=== PATIENT | female | born 1955 | race Two or more races ===

== ENCOUNTER 2019-01-23 22:06 | Emergency (ER) | payer OTHER ==
[2019-01-23 22:14] VITALS: BP 159/93; PULSE 82; TEMP 98.2; BMI 38.7
[2019-01-23] MEDS ORDERED: ACETAMINOPHEN 500 MG TABLET (FP) ONE (22:43)
[2019-01-23] MEDS ORDERED: ACETAMINOPHEN 500 MG TABLET (FP) PO ONE (22:46)
--- NOTE | 2019-01-24 00:52 | PDOC ---
Documentation entered by Ricardo Lo SCRIBE, acting as scribe for Kristy Leos MD. Kristy Leos MD: This documentation has been prepared by the Teresita morgan Elijah, SCRIBE, under my direction and personally reviewed by me in its entirety. I confirm that the documentation accurately reflects all work, treatment, procedures, and medical decision making performed by me. History of Present Illness - General Chief Complaint: Pain, Acute Stated Complaint: CLEANING BATHROOM SLIPPED AND FELL INJURING RIGHT History Source: Patient Exam Limitations: No Limitations - History of Present Illness Initial Comments: 01/23/19 22:09 Patient is 63 year old female with a significant past medical history of non- insulin dependent diabetes, hypertension, and hyperlipidemia who presents to the ED s/p fall x1.5 hours ago. Patient reports that she was filling up soap in the bathtub while cleaning and felt herself begin to slip. Patient notes that she tried to catch herself but loss balance and hit her right ribcage against edge of tub. Patient rated the pain as 8.5/10 and associates some pain with breathing. Denies head/neck trauma. Allergies: Gabapentin Past History - Past Medical History Allergies/Adverse Reactions: Allergies Allergy/AdvReac Type Severity Reaction Status Date / Time gabapentin Allergy Verified 01/23/19 22:08 Home Medications: Ambulatory Orders Lisinopril 40 mg PO DAILY 10/12/15 metFORMIN HCL [Metformin HCl] 500 mg PO DAILY 10/12/15 Aspirin 81 mg PO DAILY 01/23/19 Ibuprofen [Motrin -] 600 mg PO TID PRN #12 tablet 01/23/19 Anemia: No Asthma: No Cancer: No Cardiac Disorders: No CVA: No COPD: No CHF: No Dementia: No Diabetes: Yes GI Disorders: No Disorders: No HTN: Yes Hypercholesterolemia: Yes Liver Disease: No Psychiatric Problems: Yes (ANXIETY, DEPRESSION, INSOMNIA) Seizures: No Thyroid Disease: No - Surgical History Lung Surgery: No - Immunization History Immunization Up to Date: No - Suicide/Smoking/Psychosocial Hx Smoking History: Never smoked Have you smoked in the past 12 months: No Number of Cigarettes Smoked Daily: 0 Hx Alcohol Use: No Drug/Substance Use Hx: No Substance Use Type: None Hx Substance Use Treatment: No Review of Systems - Review of Systems Comments:: 01/23/19 22:10 All systems are reviewed and negative except as noted in the HPI *Physical Exam - Vital Signs Last Vital Signs Temp Pulse Resp BP Pulse Ox 98.2 F 82 18 159/93 100 01/23/19 22:11 01/23/19 22:11 01/23/19 22:11 01/23/19 22:11 01/23/19 22:11 - Physical Exam Comments: 01/23/19 22:10 GENERAL: Awake, alert, and fully oriented, in no acute distress HEAD: No signs of trauma EYES: PERRLA, EOMI, sclera anicteric, conjunctiva clear ENT: Auricles normal inspection, hearing grossly normal, nares patent, oropharynx clear without exudates. Moist mucosa NECK: Normal ROM, supple, no lymphadenopathy, JVD, or masses LUNGS: Breath sounds equal, clear to auscultation bilaterally. No wheezes, and no crackles HEART: Regular rate and rhythm, normal S1 and S2, no murmurs, rubs or gallops CHEST: +Moderate tenderness to palapation in Right Lower Chest wall, Ribs 7-10 in anterior ancillary line. No Palpable step-offs or crepitus. ABDOMEN: Soft, nontender, normoactive bowel sounds. No guarding, no rebound. No masses EXTREMITIES: Normal range of motion, no edema. No clubbing or cyanosis. No cords, erythema, or tenderness NEUROLOGICAL: Cranial nerves II through XII grossly intact. Normal speech SKIN: Warm, Dry, normal turgor, no rashes or lesions noted. ED Treatment Course - RADIOLOGY Radiology Studies Ordered: Category Date Time Status RIBS RIGHT SIDE [RAD] Stat Radiology 01/23/19 22:19 Taken - Medications Given in the ED: ED Medications Discontinued Medications Generic Name Dose Route Start Last Admin Trade Name Freq PRN Reason Stop Dose Admin Acetaminophen 1,000 mg 01/23/19 22:46 01/23/19 22:47 Tylenol - PO 01/23/19 22:47 1,000 mg ONCE ONE Administration Progress Note - Progress Note Progress Note: As noted above, 63-year-old woman with a history of HTN/NIDDM presents with injury to her right lower chest wall. Earlier this evening, while cleaning her bathroom, she slipped and fell forward, striking lower portion of her right ribs against the edge of the bathtub. No other injury sustained. She notes tenderness in a specific area of the right anterior lower rib cage; she has pain in this area with deep breathing. She has no abdominal pain/nausea noted. Exam as noted above. Right rib series x-ray obtained. Preliminary reading by mani QUINTANILLA chest shows no significant acute abnormality. 10th rib appears to be mildly deformed without displacement of edges. No other rib abnormality seen. Results discussed with the patient. She states that she generally uses Tylenol for pain relief. However, her PMD has prescribed ibuprofen in the past for knee pain. She will be given a 1 g of Tylenol now. She should alternate Tylenol with Motrin for pain relief over the next few days and apply cold compresses for the next 24 hours to the area of tenderness. She should take Motrin with food. Small (#20) prescription for Motrin 600 mg twice a day sent to her pharmacy. She should plan to follow-up with her doctor within the next 2-3 days. She should return to the ER immediately if she has shortness of breath/fever/cough or develops any abdominal discomfort/nausea *DC/Admit/Observation/Transfer Diagnosis at time of Disposition: Closed traumatic nondisplaced fracture of rib - Discharge Dispostion Disposition: HOME Condition at time of disposition: Stable - Prescriptions Prescriptions: Ibuprofen [Motrin -] 600 mg PO TID PRN #12 tablet PRN Reason: Pain - Referrals - Patient Instructions Printed Discharge Instructions: Rib Fracture Additional Instructions: Cool compresses to area of pain for the next 24 hours Alternate Tylenol 650 mg with Motrin 600 mg up to twice a day each for pain Always take Motrin with food Follow-up with your doctor within the next 3-4 days Return to ER immediately if you have difficulty breathing/fever/cough/abdominal pain or vomiting - Post Discharge Activity
== END 2019-01-23 22:54 | disposition home or self-care (01) ==
LOC: FER 22:06
DX: S22.31XA Fracture of one rib, right side, initial encounter for closed fracture (principal); W01.0XXA Fall on same level from slipping, tripping and stumbling without subsequent striking against object, initial encounter; Y93.E1 Activity, personal bathing and showering; Y92.002 Bathroom of unspecified non-institutional (private) residence as the place of occurrence of the external cause; I10 Essential (primary) hypertension; E11.9 Type 2 diabetes mellitus without complications
CPT/HCPCS: 71101-TC-RT-FY; 99281-25

== ENCOUNTER 2019-03-26 16:31 | Emergency (ER) | payer OTHER ==
[2019-03-26 16:53] VITALS: BP 145/81; PULSE 80; TEMP 98.1; BMI 38.9
--- NOTE | 2019-03-26 17:38 | PDOC ---
Documentation entered by Johanna Mondragon SCRIBE, acting as scribe for Ino Abdalla MD. Ino Abdalla MD: This documentation has been prepared by the Giancarlo morgan Aiswarya, SCRIBE, under my direction and personally reviewed by me in its entirety. I confirm that the documentation accurately reflects all work, treatment, procedures, and medical decision making performed by me. History of Present Illness - General Chief Complaint: Injury Stated Complaint: LEFT ANKLE PAIN S/P FALL Time Seen by Provider: 03/26/19 16:45 History Source: Patient Exam Limitations: No Limitations - History of Present Illness Initial Comments: 03/26/19 17:12 The patient is a 63 year old female, with a significant PMH of diabetes, HLD and anxiety who presents to the emergency department with left ankle pain that began 1 week ago. The patient states she reached over to grab something when she fell to the left side injuring her left ankle. Patient states she has been walking on the left foot but pain has progressively worsened today. The patient denies any numbness or tingling. Denies any head injury. Denies any pain on flexion and extension. Denies chest pain, shortness of breath, headache and dizziness.Denies fever, chills, and nausea. Allergies: gabapentin Past surgical history: None reported Social history: None reported PCP: None reported Past History - Past Medical History Allergies/Adverse Reactions: Allergies Allergy/AdvReac Type Severity Reaction Status Date / Time gabapentin Allergy Verified 03/26/19 17:03 Home Medications: Ambulatory Orders Lisinopril 40 mg PO DAILY 10/12/15 metFORMIN HCL [Metformin HCl] 500 mg PO BID 10/12/15 Aspirin 81 mg PO DAILY 01/23/19 Anemia: No Asthma: No Cancer: No Cardiac Disorders: No CVA: No COPD: No CHF: No Dementia: No Diabetes: Yes GI Disorders: No Disorders: No HTN: Yes Hypercholesterolemia: Yes Liver Disease: No Psychiatric Problems: Yes (ANXIETY, DEPRESSION, INSOMNIA) Seizures: No Thyroid Disease: No - Surgical History Lung Surgery: No - Immunization History Immunization Up to Date: No - Psycho Social/Smoking Cessation Hx Smoking History: Never smoked Have you smoked in the past 12 months: No Number of Cigarettes Smoked Daily: 0 Hx Alcohol Use: No Drug/Substance Use Hx: No Substance Use Type: None Hx Substance Use Treatment: No Review of Systems - Review of Systems Able to Perform ROS?: Yes Comments:: 03/26/19 17:05 A complete review of 10 out of 10 review of systems is taken and is negative apart from what is previously mentioned below and in the HPI. *Physical Exam - Vital Signs Last Vital Signs Temp Pulse Resp BP Pulse Ox 98.1 F 80 19 145/81 95 03/26/19 16:32 03/26/19 16:32 03/26/19 16:32 03/26/19 16:32 03/26/19 16:32 - Physical Exam Comments: 03/26/19 17:32 Vitals: Triage Vital signs reviewed General Appearance: no acute distress, well nourished well developed, Head: Atraumatic, normocephalic Cardiac: Regular rate and rhythm, no murmurs, no rubs, no gallops, Lungs: Clear to auscultation bilateral, good air movement bilaterally, Extremities: +Tenderness on palpation of the left proximal 5th metatarsal digit. Neurovascular intact. Skin: Warm and dry, no rashes or lesions, no petechiae Neuro: AOX3; Cranial Nerves 2-12 grossly c intact, Strength intact to all extremities, Sensation intact to all extremities, gait normal Psych: normal mood, normal affect ED Treatment Course - RADIOLOGY Radiology Studies Ordered: Category Date Time Status ANKLE & FOOT-LEFT* [RAD] Stat Radiology 03/26/19 16:45 Taken Medical Decision Making - Medical Decision Making 03/26/19 17:33 Patient twisted her ankle approximately 1 week ago has been ambulating on it but with persistent pain no acute fracture dislocation noted on x-ray will recommend rest ice crutches NSAIDs and orthopedic follow-up if no improvement. Findings, the need for follow-up, strict return instructions discussed with patient. Discharge - Discharge Information Problems reviewed: Yes Clinical Impression/Diagnosis: Ankle pain Qualifiers: Chronicity: acute Laterality: left Qualified Code(s): M25.572 - Pain in left ankle and joints of left foot Condition: Stable - Admission No - Follow up/Referral Referrals: Ino Morillo DO [Staff Physician] - - Patient Discharge Instructions Patient Printed Discharge Instructions: Ankle Sprain Additional Instructions: Rest, ice 20 minutes on 20 minutes off. Use crutches while ambulating. Aircast. Follow-up with Dr. Morillo orthopedics within 1 week if no improvement in symptoms. - Post Discharge Activity
== END 2019-03-26 18:05 | disposition home or self-care (01) ==
LOC: FER 16:31
DX: M25.572 Pain in left ankle and joints of left foot (principal); W18.39XA Other fall on same level, initial encounter; Y93.89 Activity, other specified; Y92.89 Other specified places as the place of occurrence of the external cause; Z88.8 Allergy status to other drugs, medicaments and biological substances; F41.8 Other specified anxiety disorders; I10 Essential (primary) hypertension; E11.9 Type 2 diabetes mellitus without complications; E78.00 Pure hypercholesterolemia, unspecified; G47.00 Insomnia, unspecified
CPT/HCPCS: 73610-TC-LT-FY; 73630-TC-LT; 99282-25

== ENCOUNTER 2024-01-31 15:39 | Emergency (ER) | payer OTHER ==
[2024-01-31 16:14] VITALS: BP 152/72; PULSE 88; RESP 19; TEMP 98.4; BMI 38.0
== END 2024-01-31 17:11 | disposition home or self-care (01) ==
LOC: FER 15:39
DX: R21 Rash and other nonspecific skin eruption (principal); L29.9 Pruritus, unspecified; M25.561 Pain in right knee; M25.562 Pain in left knee; M25.571 Pain in right ankle and joints of right foot; M25.572 Pain in left ankle and joints of left foot
CPT/HCPCS: 99283-25

== ENCOUNTER 2024-02-27 10:32 | Emergency (ER) | payer OTHER ==
[2024-02-27 10:36] VITALS: BP 139/70; PULSE 86; RESP 16; TEMP 98.4; BMI 37.8
[2024-02-27] MEDS ORDERED: ACETAMINOPHEN 500 MG TABLET (FP) ONE (10:50)
[2024-02-27] MEDS ORDERED: IBUPROFEN 400 MG TABLET (FP) PO ONE (10:50)
[2024-02-27] MEDS: ACETAMINOPHEN 500 MG TABLET (FP) PO ONE (10:55)
[2024-02-27] MEDS: IBUPROFEN 400 MG TABLET (FP) PO ONE (11:02)
[2024-02-27] MEDS ORDERED: LIDOCAINE 5% TOPICAL PATCH ONE ×2 (11:27→12:27)
[2024-02-27] MEDS: LIDOCAINE 5% TOPICAL PATCH TP ONE ×2 (11:30→12:33)
[2024-02-27 14:56] LABS: HIV INTERPRETATION NEGATIVE (NEGATIVE)
[2024-02-27] MEDS ORDERED: LIDOCAINE PATCH REMOVAL MC SCH ×2 (22:00)
[2024-02-27] MEDS ORDERED: LIDOCAINE PATCH REMOVAL MC ONE (22:00)
== END 2024-02-27 14:30 | disposition home or self-care (01) ==
LOC: FER 10:32
DX: M79.622 Pain in left upper arm (principal)
CPT/HCPCS: 36415; 73030-TC-LT-FY; 73060-TC-LT-FY; 86803; 87389; 99284-25